=== PATIENT | female | born 1990 | race Caucasian/White ===

== ENCOUNTER 2017-09-18 08:39 | Emergency (ER) | payer BC, OTHER ==
[~2017-09-18] VITALS: Ht 160 cm; Wt 44.5 kg
[2017-09-18 09:10] LABS: URINE BILIRUBIN NEGATIVE (Negative); URINE BLOOD NEGATIVE (Negative); URINE CLARITY CLEAR; URINE COLOR YELLOW; URINE GLUCOSE-RANDOM NEGATIVE (Negative); URINE KETONES NEGATIVE (Negative); URINE LEUKOCYTES-REFLEX TRACE (Negative); URINE NITRITE-REFLEX NEGATIVE (Negative); URINE PROTEIN NEGATIVE (Negative); URINE UROBILINOGEN 0.2 E.U./dl (0.2-1.0)
[2017-09-18] MEDS ORDERED: CIPROFLOXACIN500 M1 PO (09:15)
[2017-09-18 09:18] LABS: SQUAMOUS 4-10 Moderate /LPF (0-3)
[2017-09-18 09:19] LABS: BACTERIA-REFLEX >30 Many /HPF (None Seen); CASTS None Seen /LPF (None Seen); CRYSTALS None Seen /LPF (None Seen); URINE RBC None Seen /HPF (0-2); URINE WBC-REFLEX 6-15 Few /HPF (0-5)
[2017-09-18 09:21] VITALS: BP 131/84
== END 2017-09-18 09:22 | disposition home or self-care (01) ==
LOC: M.ERS 08:39
PROVIDERS: Family Medicine
DX: N39.0 Urinary tract infection, site not specified (principal)